=== PATIENT | male | born 1965 ===

== ENCOUNTER 2018-07-28 17:14 | Emergency (ER) | payer OTHER ==
[~2018-07-28] VITALS: Ht 170.2 cm; Wt 81.6 kg
[2018-07-28] MEDS ORDERED: METOPROLOL SUCC25 MG PO (17:55)
== END 2018-07-28 20:58 | disposition home or self-care (01) ==
LOC: ER 17:14
DX: M54.5 Low back pain (principal)

== ENCOUNTER 2018-09-24 08:42 | Emergency (ER) | payer OTHER ==
[~2018-09-24] VITALS: Ht 170.2 cm; Wt 87.5 kg
[~2018-09-24 08:42] MED LIST: METOPROLOL SUCC25 MG PO
== END 2018-09-24 12:04 | disposition home or self-care (01) ==
LOC: ER 08:42
DX: S20.212A Contusion of left front wall of thorax, initial encounter (principal); W22.8XXA Striking against or struck by other objects, initial encounter; Y93.89 Activity, other specified; Y92.89 Other specified places as the place of occurrence of the external cause; Y99.8 Other external cause status